=== PATIENT | female | born 1980 | race American Indian/Alaskan Native ===

== ENCOUNTER 2016-11-25 15:43 | Emergency (ER) | payer MEDICAID ==
[2016-11-25] MEDS: TYLENOL PO ONE ×2 (16:14→22:40)
[2016-11-25 16:41] LABS: Hematocrit 38.9 % (30.3-42.9); Mean Corpuscular HGB Conc 31 % (30-34); Mean Corpuscular Volume 70 fl (79-97); Platelet Count 196 K/mm3 (140-440); Red Blood Count 5.54 M/mm3 (3.65-5.03); Red Cell Distribution Width 15.4 % (13.2-15.2); White Blood Count 12.8 K/mm3 (4.5-11.0)
[2016-11-25 16:52] LABS: Mean Corpuscular Hemoglobin 22 pg (28-32)
[2016-11-25 16:58] LABS: Alanine Aminotransferase 10 units/L (7-56); Albumin 4.3 g/dL (3.9-5); Albumin/Globulin Ratio 0.9 %; Alkaline Phosphatase 95 units/L (35-129); Anion Gap 24 mmol/L; BUN/Creatinine Ratio 18.57; Bilirubin,Total 0.5 mg/dL (0.1-1.2); Blood Urea Nitrogen 13 mg/dL (7-17); Calcium 9.5 mg/dL (8.4-10.2); Carbon Dioxide 21 mmol/L (22-30); Chloride 99.4 mmol/L (98-107); Glucose 96 mg/dL (65-100); Lipase 33 units/L (13-60); Potassium 3.9 mmol/L (3.6-5.0); Sodium 140 mmol/L (137-145); Total Protein 9.1 g/dL (6.3-8.2)
[2016-11-25 17:47] LABS: Anisocytosis 1+; Blastocytes % (Manual) 0 %; Diff Status Complete; Hypochromasia 1+; Large Platelets 1+; Platelet Estimate Cons; Poikilocytosis 1+
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
--- NOTE | 2016-11-25 20:47 | Admit Criteria Form ---
Admission Criteria Documentation: FEBRILE ILLNESS, WITHOUT FOCAL INFECTION Clinical Indications for Admission to Inpatient Care (Place 'X' for any and all applicable criteria): Admission is indicated for ANY ONE of the following (1)(2)(3): [ ] I. Bacteremia [ ]II. Suspected or identified specific infection requiring hospitalization (eg, meningitis, endocarditis) [ X]III. Hemodynamic instability [ ]IV. Altered mental status [ ]V. Failure or unavailability of outpatient antimicrobial treatment [ ]. Hypoxemia [ ]VII. Seizures [ ]VIII. High-risk febrile neutropenia [ ]IX. Need for parenteral antibiotic in patient who is likely to abuse vascular access device (eg, injection drug user) [A](7) [ ]X. Temperature greater than 104.9 degrees F (40.5 degrees C) (oral) [ ]XI. Inpatient admission required rather than observation care because of ANY ONE of the following: [ ]a) Specific infection identified that is too severe for outpatient treatment or observation care trial [ ]b) Metabolic disorder (eg, hypoglycemia, hyperglycemia, metabolic acidosis) that is severe or persistent [ ]c) Temperature greater than 103.1 degrees F (39.5 degrees C) ( oral) that is not responsive to observation care treatment [ ]d) IV fluid to replace significant ongoing (eg, for over 24 hours) losses (> 3 L/m2 per day) [ ]e) Supplemental oxygen or respiratory treatments for over 24 hours that is performable only in acute inpatient setting [ ]f) Parenteral nutrition regimen need that must be implemented on inpatient basis [ ]g) Strict or protective (eg, laminar flow) isolation [ ]h) Other condition, treatment or monitoring requiring inpatient admission Extended stay beyond goal length of stay may be needed for(1)(3) [ ]a) Sepsis or septic shock(22) [ ]b) Positive blood cultures [ ]c) Insufficient oral intake [ ]d) High-risk febrile neutropenia(29)(30) [ ]e) Continued fever and clinical instability [ ]f) Clinically active comorbid illness (e.g,heart failure, renal failure , diabetes) The original [facility] content created by [facility] has been revised. The portions of the content which have been revised are identified through the use of italic text or in bold, and [employer] has neither reviewed nor approved the modified material. All other unmodified content is copyright [facility]. Please see references footnoted in the original [facility] edition 2016 Admission Criteria Met: Yes
[2016-11-25] MEDS ORDERED: ZOFRAN ONE (21:15)
[2016-11-25] MEDS: NACL ONE (21:48)
[2016-11-25] MEDS: ZOFRAN IV ONE (22:17)
[2016-11-25] MEDS: TORADOL IV ONE (22:17)
[2016-11-25] MEDS: NACL 0.9% 1000 ML 1,000 ML IV ONE (22:17)
[2016-11-25] MEDS: MORPHINE IV ONE (22:17)
[2016-11-25] MEDS ORDERED: TYLENOL ONE (22:24)
[2016-11-25 23:15] LABS: Bilirubin,Urine NEG (Negative); Blood,Urine NEG (Negative); Ketones,Urine NEG (Negative); Leukocyte Esterase,Urine NEG (Negative); Mucus,Urine 1+ /HPF; Nitrite,Urine NEG (Negative); Protein,Urine <15 mg/dL mg/dL (Negative); Urobilinogen,Urine < 2.0 mg/dL (<2.0)
--- NOTE | 2016-11-25 23:23 | Cat Scan Report ---
FINAL REPORT PROCEDURE: CT HEAD/BRAIN WO CON TECHNIQUE: Computerized tomography of the head was performed without contrast material. HISTORY: Headache COMPARISON: No prior studies are available for comparison. FINDINGS: Skull and scalp: Normal. Paranasal sinuses: Normal. Ventricles and subarachnoid spaces: Normal. Cerebrum: No evidence of hemorrhage, acute infarction or mass . Cerebellum and brainstem: No evidence of hemorrhage, acute infarction or mass. Vasculature: Normal. Comments: None. IMPRESSION: There is no evidence of an acute intracranial process
--- NOTE | 2016-11-25 23:27 | Cat Scan Report ---
FINAL REPORT PROCEDURE: CT ABDOMEN PELVIS W CON TECHNIQUE: Computerized axial tomography of the abdomen and pelvis was performed after the IV injection of iodinated nonionic contrast. HISTORY: Abd pain COMPARISON: No prior studies are available for comparison. FINDINGS: Visualized lower thorax: Mild atelectasis bilateral lower lungs. Liver: Normal size and attenuation. Spleen: Normal size and attenuation. Gallbladder and biliary system: Normal. Pancreas: Normal. Adrenals: Normal. Kidneys: Both kidneys have a normal size. No hydronephrosis. No renal stones or masses. GI tract: The stomach is normal. Small bowel has a normal caliber. No obstruction, ileus or enteritis. The cecum and colon are normal. The appendix is not clearly visualized.. Lymph nodes and mesentery: Normal. Vasculature: Normal. Bladder: Normal. Reproductive organs: No pelvic masses. Peritoneum: Normal. Musculoskeletal structures: No acute osseous abnormality. There is been previous internal fixation of the posterior right acetabular region.. Other: None. IMPRESSION: There is no evidence of intestinal or urinary tract obstruction. No ileus or enteritis. Mild atelectasis bilateral lower lungs.
[2016-11-26 00:41] VITALS: BP 96/60
--- NOTE | 2016-11-26 08:32 | XRay Report ---
AP CHEST: AP view of the chest demonstrates a normal mediastinal and cardiac contour with clear lungs and normal bony and soft tissue structures. IMPRESSION: Normal AP chest.
== END 2016-11-26 00:55 | disposition home or self-care (01) ==
LOC: ED 15:43
DX: B34.9 Viral infection, unspecified (principal); M25.551 Pain in right hip; R51 Headache; R10.32 Left lower quadrant pain
CPT/HCPCS: 36415; 70450; 71010; 74177; 80053; 81001; 82550; 83690; 84703; 85007; 85025; 96361; 96374; 96375; 99285; J1885; J2270; J2405; J7030; Q9967

== ENCOUNTER 2018-07-04 08:47 | Outpatient (CLI) | payer MEDICAID | END 2018-07-04 08:48 | disposition home or self-care (01) | LOC: WOUND 08:47 | PROVIDERS: ATTEND Surgery | DX: S81.802A Unspecified open wound, left lower leg, initial encounter (principal); F41.9 Anxiety disorder, unspecified; X58.XXXA Exposure to other specified factors, initial encounter; Y93.89 Activity, other specified; Y92.89 Other specified places as the place of occurrence of the external cause; Y99.8 Other external cause status | CPT/HCPCS: 99212; G0463 ==

== ENCOUNTER 2018-10-24 12:49 | Outpatient (CLI) | payer MEDICAID ==
[2018-10-24] MEDS ORDERED: AD OINTMENT TP PRN (14:40)
== END 2018-10-24 12:50 | disposition home or self-care (01) ==
LOC: WOUND 12:49
PROVIDERS: ATTEND Surgery
DX: S80.822A Blister (nonthermal), left lower leg, initial encounter (principal); F41.9 Anxiety disorder, unspecified; X58.XXXA Exposure to other specified factors, initial encounter; Y93.89 Activity, other specified; Y92.89 Other specified places as the place of occurrence of the external cause; Y99.8 Other external cause status
CPT/HCPCS: 11042; G0463; 99215; A6250